=== PATIENT | male | born 1975 | race Caucasian/White ===

== ENCOUNTER 2023-05-03 22:50 | Emergency (ER) | payer BC ==
[2023-05-03] MEDS ORDERED: AMOXIC-POT CLAV 875MG STARTER PACK 2 TAB BTL PO STA (23:04)
[2023-05-03] MEDS ORDERED: ACET/COD 300 MG/30 MG STARTER PACK 6 TAB BTL PO STA (23:04)
--- NOTE | 2023-05-03 23:04 | ED ---
ENT HPI - General Chief complaint: Dental/Oral Stated complaint: oral pain Time Seen by Provider: 05/03/23 22:56 Source: patient Mode of arrival: ambulatory Limitations: no limitations - History of Present Illness Initial comments: 47-year-old male presenting with chief complaint of dental pain. Patient states that he cracked his wisdom tooth on the left lower side a few days ago. He is having increasing pain and starts to feel some swelling. He does have a dentist he is able to follow up with. No difficulty breathing or swallowing. No fevers or chills. - Related Data Previous Rx's Medication Instructions Recorded Amoxic-Pot Clav 875-125Mg 1 tab PO Q12HR 7 Days #14 tab 05/03/23 [Augmentin 875-125] Allergies Allergy/AdvReac Type Severity Reaction Status Date / Time No Known Allergies Allergy Verified 05/03/23 22:51 Review of Systems ROS Statement: Those systems with pertinent positive or pertinent negative responses have been documented in the HPI. ROS Other: All systems not noted in ROS Statement are negative. Past Medical History Past Medical History: No Reported History History of Any Multi-Drug Resistant Organisms: None Reported Past Surgical History: No Surgical Hx Reported Past Psychological History: No Psychological Hx Reported Smoking Status: Former smoker Past Alcohol Use History: None Reported Past Drug Use History: None Reported General Exam Limitations: no limitations General appearance: alert, in no apparent distress Head exam: Present: atraumatic, normocephalic, normal inspection Eye exam: Present: normal appearance, EOMI Expanded Mouth exam: Present: tongue normal. Absent: drooling, trismus, muffled voice Teeth exam: Present: dental caries, fractured tooth #, dental tenderness # Throat exam: normal inspection Neck exam: Present: normal inspection, full ROM Respiratory exam: Absent: respiratory distress Neurological exam: Present: alert, oriented X3 Psychiatric exam: Present: normal affect, normal mood Skin exam: Present: warm, dry, intact, normal color. Absent: rash Course Vital Signs 05/03/23 05/04/23 22:51 00:13 Temperature 98.2 F 98.0 F Pulse Rate 78 87 Respiratory 18 16 Rate Blood Pressure 161/83 158/89 O2 Sat by Pulse 99 98 Oximetry Medical Decision Making - Medical Decision Making Was pt. sent in by a medical professional or institution (, PA, DESKTOP ANALYST, urgent care, hospital, or detention...) When possible be specific @ -No Did you speak to anyone other than the patient for history (EMS, parent, family, police, friend...)? What history was obtained from this source @ -No Did you review nursing and triage notes (agree or disagree)? Why? @ -I reviewed and agree with nursing and triage notes Were old charts reviewed (outside hosp., previous admission, EMS record, old EKG, old radiological studies, urgent care reports/EKG's, detention records)? Report findings @ -No old charts were reviewed Differential Diagnosis (chest pain, altered mental status, abdominal pain women, abdominal pain men, vaginal bleeding, weakness, fever, dyspnea, syncope, headache, dizziness, GI bleed, back pain, seizure, CVA, palpatations, mental health, musculoskeletal)? @ -Fragile includes dental pain, dental abscess, Fam angina, this is not an all inclusive list EKG interpreted by me (3pts min.). @ -As above X-rays interpreted by me (1pt min.). @ -None done CT interpreted by me (1pt min.). @ -None done U/S interpreted by me (1pt. min.). @ -None done What testing was considered but not performed or refused? (CT, X-rays, U/S, labs)? Why? @ -None What meds were considered but not given or refused? Why? @ -None Did you discuss the management of the patient with other professionals (professionals i.e. , PA, DESKTOP ANALYST, lab, RT, psych nurse, social service manager, search strategist, teacher, founder and chief executive officer, caseworker)? Give summary @ -No Was smoking cessation discussed for >3mins.? @ -No Was critical care preformed (if so, how long)? @ -No Were there social determinants of health that impacted care today? How? (Homelessness, low income, unemployed, alcoholism, drug addiction, transportation, low edu. Level, literacy, decrease access to med. care, detention, rehab)? @ -No Was there de-escalation of care discussed even if they declined (Discuss DNR or withdrawal of care, Hospice)? DNR status @ -No What co-morbidities impacted this encounter? (DM, HTN, Smoking, COPD, CAD, Cancer, CVA, ARF, Chemo, Hep., AIDS, mental health diagnosis, sleep apnea, morbid obesity)? @ -None Was patient admitted / discharged? Hospital course, mention meds given and route, prescriptions, significant lab abnormalities, going to OR and other pertinent info. @ -47-year-old male presenting with chief complaint of dental pain located on the left lower side. There is a fractured tooth appreciated on exam. No brawny induration or midline shift. Patient is having no difficulty breathing or swallowing. He'll be treated with pain medication and Augmentin. Follow-up with dentist. Follow-up with PCP. Report back to ER with any new or worsening symptoms. Discussed return parameters and answered all questions. Patient co nveyed verbal understanding and agreed to the plan. I discussed this case in detail with my attending Dr. Epperson Undiagnosed new problem with uncertain prognosis? @ -No Drug Therapy requiring intensive monitoring for toxicity (Heparin, Nitro, Insulin, Cardizem)? @ -No Were any procedures done? @ -No Diagnosis/symptom? @ -Dental abscess, dental fracture Acute, or Chronic, or Acute on Chronic? @ -Acute Uncomplicated (without systemic symptoms) or Complicated (systemic symptoms)? @ -Uncomplicated Side effects of treatment? @ -No Exacerbation, Progression, or Severe Exacerbation? @ -No Poses a threat to life or bodily function? How? (Chest pain, [place], [place], pneumonia, PE, COPD, DKA, ARF, appy, cholecystitis, CVA, Diverticulitis, Homicidal, Suicidal, threat to staff... and all critical care pts) @ -No Disposition Clinical Impression: Fracture of tooth Disposition: HOME SELF-CARE Condition: Good Instructions (If sedation given, give patient instructions): Dental Abscess (ED), Toothache (ED) Additional Instructions: Please follow up with the [facility] dental clinic. [facility] [place] [address]. Phone number for new patients or [phone] for existing patients. Prescriptions: Amoxic-Pot Clav 875-125Mg [Augmentin 875-125] 1 tab PO Q12HR 7 Days #14 tab Is patient prescribed a controlled substance at d/c from ED?: No Referrals: None,Stated [Primary Care Provider] - 1-2 days Time of Disposition: 23:04
[2023-05-03] MEDS ORDERED: KETOROLAC 15 MG/ML 1 ML VIAL IM STA (23:43)
[2023-05-04 00:31] VITALS: BP 158/89; PULSE 87; RESP 16; TEMP 98
== END 2023-05-04 00:13 | disposition home or self-care (01) ==
LOC: EC 22:50
DX: S02.5XXA Fracture of tooth (traumatic), initial encounter for closed fracture (principal); Z87.891 Personal history of nicotine dependence; X58.XXXA Exposure to other specified factors, initial encounter
CPT/HCPCS: 99283 ×2; 96372 ×2; J1885

== ENCOUNTER 2024-03-24 12:27 | Observation (INO) | payer BC ==
[2024-03-24 13:15] LABS: Basophils % (A) 0 %; Eosinophils # (A) 0.2 k/uL (0-0.7); Eosinophils % (A) 2 %; HCT 45.5 % (39.0-53.0); Lymphocytes # (A) 2.1 k/uL (1.0-4.8); Lymphocytes % (A) 19 %; MCH 30.9 pg (25.0-35.0); MCV 93.7 fL (80.0-100.0); Mean Platelet Volume 8.3; Monocytes # (A) 0.7 k/uL (0-1.0); Monocytes % (A) 7 %; Neutrophils # (A) 7.8 k/uL (1.3-7.7); Neutrophils % (A) 69 %; Platelet Count 188 k/uL (150-450); RBC 4.86 m/uL (4.30-5.90); RDW 12.6 % (11.5-15.5); WBC 11.4 k/uL (3.8-10.6)
[2024-03-24 13:34] LABS: ALT 38 U/L (4-49); AST 32 U/L (17-59); African American GFR (CKD) 77 (>60 ml/min/1.73 sqM); Albumin 4.1 g/dL (3.5-5.0); Alkaline Phosphatase 28 U/L (38-126); Anion Gap 9 mmol/L; Blood Urea Nitrogen 16 mg/dL (9-20); Calcium 9.2 mg/dL (8.4-10.2); Carbon Dioxide 24 mmol/L (22-30); Chloride 105 mmol/L (98-107); Glucose 111 mg/dL (74-99); Non-African American GFR(CKD) 67 (>60 ml/min/1.73 sqM); Potassium 4.2 mmol/L (3.5-5.1); Sodium 138 mmol/L (137-145); Total Bilirubin 0.8 mg/dL (0.2-1.3); Total Protein 6.7 g/dL (6.3-8.2)
--- NOTE | 2024-03-24 13:46 | US ---
EXAMINATION TYPE: US venous doppler duplex LE LT DATE OF EXAM: 03/24/2024 12:54 PM COMPARISON: NONE CLINICAL INDICATION: Male, 48 years old with history of pain; pain and redness on anterior left knee. Pt is on antibiotics for it. No hx of DVT, not on blood thinners SIDE PERFORMED: Left TECHNIQUE: The lower extremity deep venous system is examined utilizing real time linear array sonog олег with graded compression, doppler sonography and color-flow sonography. VESSELS IMAGED: Common Femoral Vein Deep Femoral Vein Greater Saphenous Vein * Femoral Vein Popliteal Vein Small Saphenous Vein * Proximal Calf Veins (* superficial vessels) Left Leg: No evidence for DVT. Complex area seen on anterior knee measuring 4.0 x 2.7 x 1.7cm IMPRESSION: Grayscale, color doppler, spectral doppler imaging performed of the deep veins of the lo wer extremities. There is normal flow, compressibility, vascular waveforms.
--- NOTE | 2024-03-24 13:48 | ED ---
Extremity Problem HPI - General Chief complaint: Extremity Problem,Nontraumatic Stated complaint: L Knee Injury Time Seen by Provider: 03/24/24 12:32 Source: patient, RN notes reviewed Mode of arrival: ambulatory Limitations: no limitations - History of Present Illness Initial comments: 48-year-old male presents emergency department complaint of left leg swelling, redness and infection. Patient states that he was doing some donato over the last weekend in which she states he had a small bump on his knee that ripped off. He states shortly after he developed some redness and drainage. He states he was placed on antibiotics secondary to fever and his infection yesterday by urgent care he took his medication yesterday and today then developed increasing redness and swelling of his left leg. He denies any chest pain shortness of breath continues to have fever. - Related Data Home Medications Medication Instructions Recorded Confirmed Sulfamethox-Tmp 800-160Mg [Bactrim 1 tab PO Q12HR 03/24/24 03/24/24 DS 800-160 mg] Allergies Allergy/AdvReac Type Severity Reaction Status Date / Time No Known Allergies Allergy Verified 03/24/24 15:09 Review of Systems ROS Statement: Those systems with pertinent positive or pertinent negative responses have been documented in the HPI. ROS Other: All systems not noted in ROS Statement are negative. Past Medical History Past Medical History: No Reported History History of Any Multi-Drug Resistant Organisms: None Reported Past Surgical History: No Surgical Hx Reported Past Psychological History: No Psychological Hx Reported Smoking Status: Former smoker Past Alcohol Use History: None Reported Past Drug Use History: None Reported General Exam Limitations: no limitations General appearance: alert, in no apparent distress Head exam: Present: atraumatic, normocephalic, normal inspection Eye exam: Present: normal appearance, PERRL, EOMI. Absent: scleral icterus, conjunctival injection, periorbital swelling Cardiovascular Exam: Present: normal rhythm, tachycardia, normal heart sounds. Absent: systolic murmur, diastolic murmur, rubs, gallop, clicks Extremities exam: Present: other (Left knee prepatellar region there is swelling, there is mild erythema with small scab noted there is diffuse swelling of the left lower extremity with mild tenderness and erythema) Neurological exam: Present: alert Course Vital Signs 03/24/24 03/24/24 12:29 14:46 Temperature 98.6 F 98.7 F Pulse Rate 111 H 100 Respiratory 20 16 Rate Blood Pressure 131/80 128/81 O2 Sat by Pulse 98 97 Oximetry Medical Decision Making - Medical Decision Making Was pt. sent in by a medical professional or institution (DESHAUN Shaw, TOOLROOM ATTENDANT, urgent care, hospital, or chcf...) When possible be specific @ -No Did you speak to anyone other than the patient for history (EMS, parent, family, police, friend...)? What history was obtained from this source @ -No Did you review nursing and triage notes (agree or disagree)? Why? @ -I reviewed and agree with nursing and triage notes Were old charts reviewed (outside hosp., previous admission, EMS record, old EKG, old radiological studies, urgent care reports/EKG's, chcf records)? Report findings @ -No old charts were reviewed Differential Diagnosis (chest pain, altered mental status, abdominal pain women, abdominal pain men, vaginal bleeding, weakness, fever, dyspnea, syncope, headache, dizziness, GI bleed, back pain, seizure, CVA, palpatations, mental health, musculoskeletal)? @ -Septic bursitis, cellulitis, DVT, abscess EKG interpreted by me (3pts min.). @ -None X-rays interpreted by me (1pt min.). @ -None done CT interpreted by me (1pt min.). @ -None done U/S interpreted by me (1pt. min.). @ -General Negative for acute DVT of the left lower extremity though there is a fluid collection 4 cm What testing was considered but not performed or refused? (CT, X-rays, U/S, labs)? Why? @ -None What meds were considered but not given or refused? Why? @ -None Did you discuss the management of the patient with other professionals (professionals i.e. DESHAUN Shaw, TOOLROOM ATTENDANT, lab, RT, psych nurse, social security benefits interviewer, link and link knitting machine operator, teacher, sea air land officer, shoe parts caser)? Give summary @ -Dr. Cifuentes for admission with consult orthopedics Was smoking cessation discussed for >3mins.? @ -No Was critical care preformed (if so, how long)? @ -No Were there social determinants of health that impacted care today? How? (Homelessness, low income, unemployed, alcoholism, drug addiction, transportation, low edu. Level, literacy, decrease access to med. care, assisted, rehab)? @ -No Was there de-escalation of care discussed even if they declined (Discuss DNR or withdrawal of care, Hospice)? DNR status @ -No What co-morbidities impacted this encounter? (DM, HTN, Smoking, COPD, CAD, Cancer, CVA, ARF, Chemo, Hep., AIDS, mental health diagnosis, sleep apnea, morbid obesity)? @ -None Was patient admitted / discharged? Hospital course, mention meds given and route, prescriptions, significant lab abnormalities, going to OR and other pertinent info. @ -Admitted patient has septic prepatellar bursitis was started on vancomycin with consult orthopedics ultrasound was negative for DVT. Undiagnosed new problem with uncertain prognosis? @ -No Drug Therapy requiring intensive monitoring for toxicity (Heparin, Nitro, Insulin, Cardizem)? @ -No Were any procedures done? @ -No Diagnosis/symptom? @ -Septic prepatellar bursitis Acute, or Chronic, or Acute on Chronic? @ -Acute Uncomplicated (without systemic symptoms) or Complicated (systemic symptoms)? @ -Complicated Side effects of treatment? @ -No Exacerbation, Progression, or Severe Exacerbation? @ -No Poses a threat to life or bodily function? How? (Chest pain, [place], [place], pneumonia, PE, COPD, DKA, ARF, appy, cholecystitis, CVA, Diverticulitis, Homicidal, Suicidal, threat to staff... and all critical care pts) @ -No - Lab Data Result diagrams: 03/24/24 12:56 03/24/24 12:56 Lab Results 03/24/24 03/24/24 03/24/24 Range/Units 12:56 12:56 12:56 WBC 11.4 H (3.8-10.6) k/uL RBC 4.86 (4.30-5.90) m/uL Hgb 15.0 (13.0-17.5) gm/dL Hct 45.5 (39.0-53.0) % MCV 93.7 (80.0-100.0) fL MCH 30.9 (25.0-35.0) pg MCHC 33.0 (31.0-37.0) g/dL RDW 12.6 (11.5-15.5) % Plt Count 188 (150-450) k/uL MPV 8.3 Neutrophils % 69 % Lymphocytes % 19 % Monocytes % 7 % Eosinophils % 2 % Basophils % 0 % Neutrophils # 7.8 H (1.3-7.7) k/uL Lymphocytes # 2.1 (1.0-4.8) k/uL Monocytes # 0.7 (0-1.0) k/uL Eosinophils # 0.2 (0-0.7) k/uL Basophils # 0.0 (0-0.2) k/uL Sodium 138 (137-145) mmol/L Potassium 4.2 (3.5-5.1) mmol/L Chloride 105 (98-107) mmol/L Carbon Dioxide 24 (22-30) mmol/L Anion Gap 9 mmol/L BUN 16 (9-20) mg/dL Creatinine 1.28 H (0.66-1.25) mg/dL Est GFR (CKD-EPI)AfAm 77 (>60 ml/min/1.73 sqM) Est GFR (CKD-EPI)NonAf 67 (>60 ml/min/1.73 sqM) Glucose 111 H (74-99) mg/dL Plasma Lactic Acid Justice 1.0 (0.7-2.0) mmol/L Calcium 9.2 (8.4-10.2) mg/dL Total Bilirubin 0.8 (0.2-1.3) mg/dL AST 32 (17-59) U/L ALT 38 (4-49) U/L Alkaline Phosphatase 28 L (38-126) U/L Total Protein 6.7 (6.3-8.2) g/dL Albumin 4.1 (3.5-5.0) g/dL Disposition Clinical Impression: Septic prepatellar bursitis of left knee, Left leg cellulitis Disposition: ADMITTED IP TO THIS HOSP Condition: Fair Referrals: Jaiden Cifuentes DO [Primary Care Provider] - 1-2 days Time of Disposition: 14:38
[2024-03-24] MEDS ORDERED: VANCOMYCIN IV PER PHARMACY 1 EACH MISC MISCELLANE PRN (14:36)
[2024-03-24] MEDS ORDERED: HYDROmorphone 0.5 MG/0.5 ML SYRINGE IVP PRN (14:38)
[2024-03-24] MEDS ORDERED: NALOXONE 0.4 MG/ML 1 ML VIAL IV PRN (14:38)
[2024-03-24] MEDS ORDERED: HYDROcodone/APAP 5-325MG 1 EACH TAB PO PRN (14:38)
[2024-03-24] MEDS ORDERED: ONDANSETRON 4 MG/2 ML VIAL IVP PRN (14:38)
[2024-03-24] MEDS: VANCOMYCIN 2,000 MG in SODIUM CHLORIDE 0.9% 500 ML 500 ML IVPB STA (15:25)
--- NOTE | 2024-03-24 18:58 | P.CNOR ---
History of Present Illness - HPI Consult date: 03/24/24 History of present illness: This is a 48-year-old male who is admitted for bursitis of the left knee. Patient states that he removed a piece of skin or callus from the front of his left knee over the weekend and by Thursday the left knee became very swollen and sore. Patient states that he developed a fever of 101 and was treated with oral antibiotics from an urgent care on 03/23/2024. Patient states that he went to work today and the entire left lower leg became swollen, red and more painful. Patient states that he has been taking antibiotics as prescribed and he denies any drainage from his left knee. Patient states that he is able to ambulate, but certain movements are sore. Patient denies any significant past medical history other than [place] as a child which he states left a chronic bump on the left knee in the area of current swelling. Patient states that swelling in this area is a little bit more than normal. Patient denies any chest pain, shortness breath, abdominal pain, numbness, weakness or tingling. Review of Systems See HPI. Past Medical History Past Medical History: No Reported History History of Any Multi-Drug Resistant Organisms: None Reported Past Surgical History: No Surgical Hx Reported Past Psychological History: No Psychological Hx Reported Smoking Status: Former smoker Past Alcohol Use History: None Reported Past Drug Use History: None Reported - Past Family History Father Family Medical History: Diabetes Mellitus Mother Family Medical History: Diabetes Mellitus Medications and Allergies Home Medications Medication Instructions Recorded Confirmed Type Sulfamethox-Tmp 800-160Mg [Bactrim 1 tab PO Q12HR 03/24/24 03/24/24 History DS 800-160 mg] Allergies Allergy/AdvReac Type Severity Reaction Status Date / Time No Known Allergies Allergy Verified 03/24/24 15:09 Physical Examination On exam patient is resting comfortably in bed in no acute distress. Patient is alert and oriented 3. Left lower extremity: On exam there is an approximately 4 cm area of swelling over the anterior aspect of the left knee. There is a small wound in the center of the swelling. There is no active drainage. There is mild erythema. The left lower leg is mildly swollen with faint erythema. Calf is soft and nontender to palpation. Patient has full range of motion of the left foot and ankle. Patient has full range of motion of the left knee with some discomfort at full flexion. Sensation intact. Neurovascular status and circulatory status are intact. Results - Labs Labs: Abnormal Lab Results - Last 24 Hours (Table) 03/24/24 03/24/24 Range/Units 12:56 12:56 WBC 11.4 H (3.8-10.6) k/uL Neutrophils # 7.8 H (1.3-7.7) k/uL Creatinine 1.28 H (0.66-1.25) mg/dL Glucose 111 H (74-99) mg/dL Alkaline Phosphatase 28 L (38-126) U/L H & H 03/24/24 Range/Units 12:56 Hgb 15.0 (13.0-17.5) gm/dL Hct 45.5 (39.0-53.0) % Result Diagrams: 03/24/24 12:56 03/24/24 12:56 Assessment and Plan (1) Left leg cellulitis Current Visit: Yes Status: Acute Code(s): L03.116 - CELLULITIS OF LEFT LOWER LIMB SNOMED Code(s): 87563326935949929 (2) Septic prepatellar bursitis of left knee Current Visit: Yes Status: Acute Code(s): M71.162 - OTHER INFECTIVE BURSITIS, LEFT KNEE SNOMED Code(s): 2042220213996777 Plan: 1. Recommend continuation of IV antibiotics. 2. K-pad to the left knee as tolerated. 3. Patient is well-appearing and afebrile. White blood cell count is 11.4 today. 4. No surgical intervention planned. Further recommendations pending clinical course. An x-ray of the left knee is ordered today.
[2024-03-24] MEDS: ACETAMINOPHEN TAB 325 MG TAB PO PRN (19:58)
[2024-03-25 05:15] LABS: African American GFR (CKD) >90 (>60 ml/min/1.73 sqM); Non-African American GFR(CKD) 81 (>60 ml/min/1.73 sqM)
[2024-03-25] MEDS: VANCOMYCIN 1,750 MG in SODIUM CHLORIDE 0.9% 500 ML 500 ML IVPB SCH (05:32)
--- NOTE | 2024-03-25 09:11 | P.PN ---
Subjective Progress Note Date: 03/25/24 Principal diagnosis: Prepatellar bursitis left knee. This is a 48-year-old male who is admitted for bursitis of the left knee. Patient states that he removed a piece of skin or callus from the front of his left knee over the weekend and by Thursday the left knee became very swollen and sore. Patient states that he developed a fever of 101 and was treated with oral antibiotics from an urgent care on 03/23/2024. Patient states that he went to work today and the entire left lower leg became swollen, red and more painful. Patient states that he has been taking antibiotics as prescribed and he denies any drainage from his left knee. Patient states that he is able to ambulate, but certain movements are sore. Patient denies any significant past medical history other than [place]Schlatter as a child which he states left a chronic bump on the left knee in the area of current swelling. Patient states that swelling in this area is a little bit more than normal. Patient denies any chest pain, shortness breath, abdominal pain, numbness, weakness or tingling. 03/25/2024: The patient has no new complaints or concerns today. He states that his knee is feeling much better. He reports no fever or chills. Objective - Vital Signs Vital signs: Vital Signs Temp 98.2 F 03/25/24 07:13 Pulse 78 03/25/24 07:13 Resp 17 03/25/24 07:13 BP 121/75 03/25/24 07:13 Pulse Ox 97 03/25/24 07:13 FiO2 Intake & Output 03/24/24 03/25/24 03/25/24 18:59 06:59 18:59 Weight 107.501 kg Other: # Voids 1 - Exam This is a pleasant 48-year-old male in no acute distress. He is alert and oriented x 3. His is present at bedside. Exam of the left knee reveals that his erythema and swelling are significantly improved. He continues to have a small amount of erythema just over the bursal area. He has improved range of motion of the knee. He has full foot and ankle motion without difficulty or pain. Neurovascular status to the lower extremity is intact. - Labs CBC & Chem 7: 03/24/24 12:56 03/25/24 04:31 Labs: Abnormal Lab Results - Last 24 Hours (Table) 03/24/24 03/24/24 Range/Units 12:56 12:56 WBC 11.4 H (3.8-10.6) k/uL Neutrophils # 7.8 H (1.3-7.7) k/uL Creatinine 1.28 H (0.66-1.25) mg/dL Glucose 111 H (74-99) mg/dL Alkaline Phosphatase 28 L (38-126) U/L Assessment and Plan (1) Left leg cellulitis Current Visit: Yes Status: Acute Code(s): L03.116 - CELLULITIS OF LEFT LOWER LIMB SNOMED Code(s): 85804440516186777 (2) Septic prepatellar bursitis of left knee Current Visit: Yes Status: Acute Code(s): M71.162 - OTHER INFECTIVE BURSITIS, LEFT KNEE SNOMED Code(s): 1825516760336850 Plan: The clinical findings are discussed with the patient and his . He has had significant improvement in the swelling and redness. I recommend continuing the antibiotics and we will place him in a knee immobilizer. He is instructed to avoid bending the knee. He may be discharged to home tomorrow if he continues to improve I recommend home on oral antibiotics per internal medicine. We discussed that we would like to avoid incising the area if at all possible to prevent long-term drainage from the area. The patient understands and agrees with the plan.
--- NOTE | 2024-03-25 09:41 | XR ---
EXAMINATION TYPE: XR knee complete LT DATE OF EXAM: 03/24/2024 COMPARISON: None HISTORY: 48-year-old male inferior to patella, left knee bursitis and pain TECHNIQUE: AP, oblique, and lateral views FINDINGS: There is corticated ossific density at the tibial tuberosity suggesting sequela of prior Stark-Schla tter's disease. There is focal soft tissue tumor in anterior to the tibial tuberosity measuring 5.6 x 2.4 cm. There is a trace to small knee joint effusion. No acute fracture, subluxation, or dislocation is seen . IMPRESSION: 1. Focal protuberance overlying the tibial tuberosity measuring 5.6 x 2.4 cm. Consider clergyman's kn ee/superficial infrapatellar bursitis in the differential. 2. Sequela of prior Stark-Schlatter's disease. 3. Trace to small knee joint effusion.
--- NOTE | 2024-03-25 11:27 | P.HPIM ---
History of Present Illness H&P Date: 03/25/24 Chief Complaint: Left knee bursitis This is a 48-year-old gentleman who was working on donato over the weekend, developed a small left knee bump that eventually ripped off with further development of fevers, redness and drainage. Proceeded to urgent care and placed on antibiotics. Redness and swelling of the affected extremity progressed and patient proceeded to the ER. Denies chest pain, palpitations or shortness of breath. Afebrile, WBC 11.4, lactic acid 1.0, hematology unremarkable, electrolytes within normal limits, creatinine mildly elevated on admission at 1.2 weight currently back to baseline 1.09. Venous Doppler reported no evidence for DVT, complex area seen on anterior knee measuring 4 x 2.7 x 1.7. Knee x-ray pending. Review of Systems ROS Statement: Those systems with pertinent positive or pertinent negative responses have been documented in the HPI. ROS Other: All systems not noted in ROS Statement are negative. Past Medical History Past Medical History: No Reported History History of Any Multi-Drug Resistant Organisms: None Reported Past Surgical History: No Surgical Hx Reported Past Psychological History: No Psychological Hx Reported Smoking Status: Former smoker Past Alcohol Use History: None Reported Past Drug Use History: None Reported - Past Family History Father Family Medical History: Diabetes Mellitus Mother Family Medical History: Diabetes Mellitus Medications and Allergies Home Medications Medication Instructions Recorded Confirmed Type Sulfamethox-Tmp 800-160Mg [Bactrim 1 tab PO Q12HR 03/24/24 03/24/24 History DS 800-160 mg] Allergies Allergy/AdvReac Type Severity Reaction Status Date / Time No Known Allergies Allergy Verified 03/24/24 15:09 Physical Exam Vitals: Vital Signs Temp Pulse Pulse Resp BP BP Pulse Ox 03/25/24 07:13 98.2 F 78 17 121/75 97 03/25/24 02:10 98.1 F 83 16 111/71 93 L 03/24/24 19:43 99.2 F 94 17 131/75 96 03/24/24 18:15 98.3 F 98 16 126/79 97 03/24/24 14:46 98.7 F 100 16 128/81 97 03/24/24 12:29 98.6 F 111 H 20 131/80 98 Intake and Output 03/24/24 03/25/24 03/25/24 22:59 06:59 14:59 Other: # Voids 1 Weight 107.501 kg PHYSICAL EXAM: VITAL SIGNS: [Reviewed] GENERAL: Obese gentleman, alert and oriented x 3, sitting up in bed, no acute distress HEENT: Normocephalic, atraumatic ,conjunctivae normal. eyes normal. MMM. NECK: Supple, no JVD. No thyroid enlargement. No LNs CARDIOVASCULAR: S1, S2 regular. No murmur RESPIRATION: Breath sounds diminished in the bases. No rhonchi or crackles. No bronchial breathing. ABDOMEN: Soft, nondistended, nontender . No guarding. no masses palpable. No ascites, No hepatosplenomegaly.Bowel sounds heard. LEGS: Left knee arrhythmia and swelling, knee mobile. NERVOUS SYSTEM: Cranial N 2-12 grossly normal. No focal deficits. Strength and sensation grossly intact. Skin: Warm and dry Results CBC & Chem 7: 03/24/24 12:56 03/25/24 04:31 Labs: Abnormal Lab Results - Last 24 Hours (Table) 03/24/24 03/24/24 Range/Units 12:56 12:56 WBC 11.4 H (3.8-10.6) k/uL Neutrophils # 7.8 H (1.3-7.7) k/uL Creatinine 1.28 H (0.66-1.25) mg/dL Glucose 111 H (74-99) mg/dL Alkaline Phosphatase 28 L (38-126) U/L Thrombosis Risk Factor Assmnt - Choose All That Apply Each Factor Represents 1 point: Age 41-60 years, Obesity (BMI >25), Swollen legs (current) Thrombosis Risk Factor Assessment Total Risk Factor Score: 3 Thrombosis Risk Factor Assessment Level: Moderate Risk Assessment and Plan Assessment: Septic prepatellar bursitis of left knee, left leg cellulitis Leukocytosis secondary to the above Acute renal insufficiency secondary to the above, returned to baseline Obesity, BMI 32 Plan: Continue on current medication regimen ,monitoring and symptomatic treatment. Maintain antibiotics. Close monitoring of renal function. knee immobilizer ordered. orthopedic surgery following. The impression and plan of care has been dictated as directed. : I performed a history and examination of this patient, discussed the same with the dictator. I agree with the dictator's note ,documented as a scribe. Any additional findings or plans will be noted.
[2024-03-26 01:42] VITALS: RESP 16
[2024-03-26 09:02] VITALS: TEMP 98.1
[2024-03-26 09:44] LABS: Basophils # (A) 0.06 X 10*3/uL (0.00-0.10); Basophils % (A) 0.8 %; Eosinophils # (A) 0.43 X 10*3/uL (0.04-0.35); Eosinophils % (A) 5.7 %; HCT 45.1 % (39.6-50.0); HGB 15.1 g/dL (13.0-17.0); Lymphocytes % (A) 28.9 %; MCH 31.1 pg (27.0-32.0); MCHC 33.5 g/dL (32.0-37.0); Mean Platelet Volume 10.3 FL (9.5-12.2); Monocytes # (A) 0.81 X 10*3/uL (0.20-1.00); Monocytes % (A) 10.6 %; NRBC Per 100 WBC 0 X 10*3/uL (0.00-0.01); Neutrophils # (A) 4.08 X 10*3/uL (1.80-7.70); Neutrophils % (A) 53.6 %; Platelet Count 197 X 10*3/uL (140-440); RBC 4.85 X 10*6/uL (4.40-5.60); RDW 12.6 % (11.5-14.5); WBC 7.61 X 10*3/uL (4.50-10.00)
--- NOTE | 2024-03-26 10:30 | P.PN ---
Subjective Progress Note Date: 03/26/24 This is a 48-year-old male who is admitted for septic bursitis of the left knee. Patient is seen and evaluated at bedside today and reports continued improvement in pain and swelling. Patient denies any new symptoms or complaints today. Objective - Vital Signs Vital signs: Vital Signs Temp 98.1 F 03/26/24 07:10 Pulse 72 03/26/24 07:10 Resp 16 03/26/24 07:10 BP 124/75 03/26/24 07:10 Pulse Ox 95 03/26/24 07:10 FiO2 Intake & Output 03/25/24 03/26/24 03/26/24 18:59 06:59 18:59 Other: Voiding Method Toilet # Voids 3 1 # Bowel Movements 2 - Exam This is a pleasant 48-year-old male in no acute distress. Patient is alert and oriented x 3 and is present at bedside. Exam of the left knee reveals that his erythema and swelling are significantly improved. There is a small amount of swelling and minimal erythema over the bursal area. There is no drainage. Patient has full range of motion of the left foot and ankle. Calf is soft and nontender to palpation. Sensation intact. Neurovascular status to the lower extremity is intact. - Labs CBC & Chem 7: 03/26/24 06:07 03/25/24 04:31 Labs: Abnormal Lab Results - Last 24 Hours (Table) 03/26/24 Range/Units 06:07 Eosinophils # 0.43 H (0.04-0.35) X 10*3/uL Microbiology - Last 24 Hours (Table) 03/24/24 12:56 Blood Culture - Preliminary Blood Assessment and Plan (1) Left leg cellulitis Current Visit: Yes Status: Acute Code(s): L03.116 - CELLULITIS OF LEFT LOWER LIMB SNOMED Code(s): 44037566946196014 (2) Septic prepatellar bursitis of left knee Current Visit: Yes Status: Acute Code(s): M71.162 - OTHER INFECTIVE BURSITIS, LEFT KNEE SNOMED Code(s): 0896198625165023 Plan: Patient's symptoms continue to improve. Patient is afebrile and white blood cell count is within normal limits. Recommend use of a knee immobilizer and discharge on oral antibiotics per internal medicine. Recommend outpatient follow-up in the office next week.
[2024-03-26 10:34] LABS: Blood Urea Nitrogen 13.5 mg/dL (9.0-27.0); Chloride 108 mmol/L (96-109); Glucose 102 mg/dL (70-110); Potassium 4.7 mmol/L (3.5-5.5); Sodium 141 mmol/L (135-145)
[2024-03-26 10:35] LABS: Calcium 8.5 mg/dL (8.7-10.3); Carbon Dioxide 23.6 mmol/L (21.6-31.8)
--- NOTE | 2024-03-26 14:18 | P.DS ---
Providers Date of admission: 03/24/24 14:31 Expected date of discharge: 03/26/24 Attending physician: Jaiden Cifuentes Consults: 03/24/24 14:38 Consult Physician Urgent Consulting Provider: Gabriel Boyle Consult Reason/Comments: Prepatellar septic bursitis Do you want consulting provider notified?: Yes Primary care physician: Jaiden Cifuentes Hospital Course: Discharge diagnoses: Left knee prepatellar bursitis, left leg cellulitis: Leukocytosis KAYLA: Resolved Obesity BMI 32 Presented with left knee pain. Evaluated by orthopedic for septic bursitis of left knee prepatellar annual left leg cellulitis. Symptoms improved significantly during hospitalization, received IV vancomycin. Orthopedic recommended outpatient follow-up Continued on doxycycline and Keflex for 14 days, failed Bactrim. Blood cultures negative so far. Hospital course: This is a 48-year-old gentleman who was working on donato over the weekend, developed a small left knee bump that eventually ripped off with further development of fevers, redness and drainage. Proceeded to urgent care and placed on antibiotics. Redness and swelling of the affected extremity progressed and patient proceeded to the ER. Denies chest pain, palpitations or shortness of breath. Afebrile, WBC 11.4, lactic acid 1.0, hematology unremarkable, electrolytes within normal limits, creatinine mildly elevated on admission at 1.2 weight currently back to baseline 1.09. Venous Doppler reported no evidence for DVT, complex area seen on anterior knee measuring 4 x 2.7 x 1.7. Knee x-ray --focal protuberance overlying the tibial tuberosity measuring 5.6X 2.4 cm. Trace to small knee joint effusion. Patient was admitted to hospital for further evaluation and management. Patient symptoms gradually improved during hospitalization. Patient received vancomycin during hospitalization. Orthopedic consulted, recommended to continue oral antibiotics at discharge and outpatient follow-up next week. Patient continued on doxycycline and Keflex for 14 days at discharge, advised to follow-up with orthopedic as outpatient. Advised to continue wearing knee brace. PHYSICAL EXAMINATION: GENERAL: The patient is A&O x3, NAD HEENT: EOMI, Sclerae anicteric, Moist Mucous membranes Neck: Supple, Non tender, No JVD PULMONARY: Equal breath souds B/L, No wheezing, No crackles. CARDIOVASCULAR: S1, S2 present. No murmurs, rubs, or gallops. ABDOMEN: Soft, nontender, nondistended, normoactive bowel sounds. No guarding or rebound tenderness. MUSCULOSKELETAL: No edema, No cyanosis. No clubbing. Normal ROM. Intact peripheral pulses. Left knee mild swelling, no warmth tenderness. EXTREMITIES: No cyanosis, clubbing, or pedal edema. NEUROLOGICAL: CN 2-12 grossly intact. No FND SKIN: No rashes. Dictation was produced using [employer] dictation software. please excuse any grammatical, word or spelling errors. Patient Condition at Discharge: Fair Plan - Discharge Summary New Discharge Prescriptions: New Cephalexin [Keflex] 1,000 mg PO Q8HR 14 Days #84 cap Doxycycline [Vibramycin] 100 mg PO BID 14 Days #28 capsule Acetaminophen Tab [Tylenol] 650 mg PO Q6HR PRN tab PRN Reason: Mild Pain Or Fever > 100.5 Discontinued Sulfamethox-Tmp 800-160Mg [Bactrim DS 800-160 mg] 1 tab PO Q12HR Discharge Medication List Acetaminophen Tab [Tylenol] 650 mg PO Q6HR PRN tab 03/26/24 [Rx] Cephalexin [Keflex] 1,000 mg PO Q8HR 14 Days #84 cap 03/26/24 [Rx] Doxycycline [Vibramycin] 100 mg PO BID 14 Days #28 capsule 03/26/24 [Rx] Follow up Appointment(s)/Referral(s): Jaiden Cifuentes DO [Primary Care Provider] - 1-2 days Gabriel Boyle DO [Doctor of Osteopathic Medicine] - 3 Days Activity/Diet/Wound Care/Special Instructions: Maintain knee immobilizer when out of bed. Rest and elevate for swelling. Please follow-up with [facility] and call with any questions or concerns, .
[2024-03-26 15:13] VITALS: BP 145/73; PULSE 71
[2024-03-26] MEDS ORDERED: VANCOMYCIN TROUGH DUE 1 EACH MISC MISCELLANE ONE (16:00)
== END 2024-03-26 15:49 | disposition home or self-care (01) ==
LOC: EC 12:27 → 4SSUR 14:31 → INTOOBSV 14:31 → 4SSUR 17:45 → UNDODISIN 03-26 15:49
PROVIDERS: ADMIT Family Medicine; ATTEND Family Medicine
DX: M70.42 Prepatellar bursitis, left knee (principal); L03.116 Cellulitis of left lower limb; N17.9 Acute kidney failure, unspecified; E66.9 Obesity, unspecified; Z68.32 Body mass index [BMI] 32.0-32.9, adult; Z87.891 Personal history of nicotine dependence
CPT/HCPCS: 96366 ×3; 96365; 96367; 99285; 36415; 80053; 80048; 82565; 83605; 85025 ×2; 87040; 73562; 93971; G0378 ×3; L1830; J3370 ×3; J0690; 96368

== ENCOUNTER → 2024-05-02 | Day surgery (SDC) | payer BC ==
[2024-04-27 13:01] VITALS: BMI 31.1
[~2024-05-02] MED LIST: LIDOCAINE 1% (10MG/ML) FOR IV START INTRADERMA PRN; PROPOFOL 10 MG/ML 20 ML VIAL IV ONE
[2024-05-02] MEDS: LACTATED RINGERS 1,000 ML IV SCH (11:52)
[2024-05-02] MEDS: IV FLUID CONTINUATION 1,000 ML IV ONE (11:54)
[2024-05-02 11:56] VITALS: TEMP 97.7
--- NOTE | 2024-05-02 12:30 | P.PCN ---
Date of Procedure: 05/02/24 Preoperative Diagnosis: Screening Postoperative Diagnosis: Normal colon Procedure(s) Performed: Colonoscopy Anesthesia: MAC Surgeon: Davie Fisher Pathology: none sent Condition: stable Disposition: same day Indications for Procedure: 48-year-old male presents today for screening colonoscopy. He has never had colonoscopy previously. Denies blood in stool. Denies family history of colon cancer. Risks, benefits and alternatives were provided to the patient. All questions answered. Operative Findings: Overall normal-appearing colon Description of Procedure: The patient was brought to the endoscopy suite. He was then placed in left lateral decubitus position and adequate sedation achieved using conscious sedation. A digital rectal exam was performed and mild internal hemorrhoids were palpated. An endoscope was then placed in the rectum and advanced to the cecum as identified by landmarks including the appendiceal orifice and the ileocecal valve. The prep was good. The colonoscope was then slowly withdrawn, examining for any mucosal abnormalities. The cecum, ascending, transverse, descending and sigmoid colon were visualized adequately. No polyps were noted. No evidence of diverticulosis. No inflammatory lesions.. Retroflexion was performed in the rectum and mild internal hemorrhoids were visible. Excess air was removed. The colonoscope withdrawn and the procedure terminated. The patient was then transferred to the recovery unit in stable condition. Repeat colonoscopy should be performed in 10 years.
[2024-05-02 12:38] VITALS: RESP 14
[2024-05-02 13:01] VITALS: BP 114/76; PULSE 75
== END | disposition home or self-care (01) ==
LOC: ORWHC2ENDO 10:36
PROVIDERS: ATTEND Surgery
DX: Z12.11 Encounter for screening for malignant neoplasm of colon (principal); K64.8 Other hemorrhoids; G47.33 Obstructive sleep apnea (adult) (pediatric); Z87.891 Personal history of nicotine dependence
CPT/HCPCS: 45378; J2704

== ENCOUNTER → 2024-05-04 | Outpatient (CLI) | payer BC ==
[2024-05-04 13:56] VITALS: BP 139/91; PULSE 69; RESP 16; TEMP 98.2
--- NOTE | 2024-05-04 14:22 | P.SLEEP ---
History of Present Illness DATE: 05/04/2024 CONSULTATION/NEW PATIENT EVALUATION HISTORY OF PRESENT ILLNESS/SLEEP-WAKE EVALUATION: 48-year-old gentleman had been evaluated in the sleep center for possible obstructive sleep apnea hypopnea syndrome. SLEEP SCHEDULE: Usually sleep schedule from 10 PM to 5:30 AM on weekdays and from 1112 midnight until 78 AM on weekend. FALLING ASLEEP: Usually no problems with falling asleep. DURING SLEEP: According to patient he has severe snoring and witnessed episodes of stop breathing during the sleep. Positive history of movements during the sleep. Positive history of heartburn no history of hypnogogical hallucinations, sleep paralysis, or cataplexy. DURING THE DAY/WAKE STATE: Patient may feel sleepiness during the day. [place] sleepiness scale is 11. Usually patient does not take naps. PAST MEDICAL HISTORY: Mostly negative. PAST SURGICAL HISTORY: None. MEDICATIONS: None. SOCIAL HISTORY: Please see below. FAMILY HISTORY: Diabetes mellitus. REVIEW OF SYSTEMS: Loud snoring, sleepiness during the day. No fevers. No double vision. No recent chest pain. No shortness of breath. No abdominal pain. No bleeding episodes. No blood in urine. No seizure episodes. PHYSICAL EXAMINATION: GENERAL: A pleasant patient without any distress. VITAL SIGNS: Please see below, weight 240.2 pounds, BMI 33.4. HEENT: PERRLA, EOMI. Evaluation of oropharynx showed tongue protrudes midline, low position of soft palate Mallampati 4. NECK: Supple. No JVD. Thyroid is not palpable. 18.5 inches in circumference. LUNGS: Clear to percussion and to auscultation. Good air exchange. No wheezing or rhonchi. HEART: S1, S2 regular. No murmurs, gallops or rubs. ABDOMEN: Soft and nontender. Bowel sounds are present. No organomegaly appreciated. EXTREMITIES: No clubbing or cyanosis. EQUIPMENT MECHANIC: Awake, alert, and oriented x3. Cranial nerves 2 to 7 intact. There is no fasciculation or atrophy noted. No focal deficits observed. ASSESSMENT: 1. Loud snoring, witnessed episodes of stop breathing during the sleep, extremely low position of soft palate Mallampati 4, wide neck 18.5 inches in circumference, sleepiness with [place] Sleepiness Scale increased to 11. Obstructive sleep apnea hypopnea syndrome. 2. Mild obesity, BMI 33.4. 3. Increased blood pressure in the office. 4. Twitching of the legs, possible periodic limb movements. PLAN: 1. Home sleep apnea test for evaluation of patient's breathing during sleep. 2. Following plan after reading sleep study. 3. Preferable position during sleep on the side. 4. No driving if patient feels any sleepiness. Patient is aware of civil and criminal liability for unsafe driving. 5. Sleep hygiene with regular sleep time for at least 7.5-8 hours. 6. Watching and losing weight. Thank you very much for referring this patient for consultation. Sincerely, Francisco Hoffman MD, PhD, FAASM. Diplomat of [place] [employer], Sleep Medicine Board by [place] [employer] [place] [employer] [place] cc: Jaiden Cifuentes DO Past Medical History Past Medical History: No Reported History History of Any Multi-Drug Resistant Organisms: None Reported Past Surgical History: No Surgical Hx Reported Past Psychological History: No Psychological Hx Reported Smoking Status: Former smoker Past Alcohol Use History: None Reported Past Drug Use History: None Reported - Past Family History Father Family Medical History: Diabetes Mellitus Additional Family Medical History / Comment(s): Dad passed due to diabetes. Mother Family Medical History: Diabetes Mellitus Medications and Allergies Home Medications Medication Instructions Recorded Confirmed Type No Known Home Medications 04/27/24 04/27/24 History Allergies Allergy/AdvReac Type Severity Reaction Status Date / Time No Known Allergies Allergy Verified 04/27/24 12:54 Physical Exam Vitals: Vital Signs Temp Pulse Resp BP Pulse Ox 05/04/24 13:54 98.2 F 69 16 139/91 98 Intake and Output 05/03/24 05/04/24 05/04/24 22:59 06:59 14:59 Other: Weight 108.919 kg Sleep Note - Sleep Data ESS Total: 7 - Sleep Note Sleep Note: Temperature: 98.2 F Pulse Rate: 69 Respiratory Rate: 16 Blood Pressure: 139/91 SpO2: 98 Height: 5 ft 11 in Weight: 108.919 kg BMI: Neck Circumference: 18.5
== END ==
LOC: 3 N SLEEP 13:18
PROVIDERS: ATTEND Internal Medicine
CPT/HCPCS: 99211

== ENCOUNTER → 2024-05-11 | Outpatient (CLI) | payer BC ==
--- NOTE | 2024-05-12 17:51 | P.PCN ---
Description of Procedure: CLINICAL: A home sleep apnea test has been done for confirmation of possible obstructive sleep apnea-hypopnea syndrome. DESCRIPTION OF PROCEDURE: RESULTS: Recording time was 6 hours 44 minutes. Evaluation time was 6 hours 32 minutes. Evaluation time is sufficient for making conclusion about results of the test. Raw data of sleep recording has been reviewed and is adequate. Respiratory channel showed 0 apneas and 47 hypopneas. Apnea-hypopnea index was 7.2 per hour. Pulse rate in the range between minimum 58, maximum 162, average 83 by computer calculation. Lowest desaturation was 79%. IMPRESSION: 1. Mild Obstructive Sleep Apnea Hypopnea Syndrome, patient present with symptoms of excessive daytime sleepiness with [place] Sleepiness Scale increased to 11. Please see other impressions from consultation. PLAN: 1. The patient will be started on auto-PAP treatmentfor correction of respiratory abnormallities during sleep. 2. I will see patient for follow up visit to discuss results of the test, evaluate clinical response on treatment with PAP therapy and make any necessary adjustments related to mask fitting, pressure, and humidification. 3. Watching weight. 4. Sleep hygiene with regular time in bed for at least 8 hours. 5. No driving if feeling any sleepiness. Thank you very much for allowing me to participate in the management of your patient. Sincerely, Francisco Hoffman MD, PhD, FAASM Diplomat of [place] [employer] Sleep Medicine Board of [place] [employer] [facility] [place] cc: Jaiden Cifuentes DO
== END ==
LOC: 3 N SLEEP 17:00
PROVIDERS: ATTEND Internal Medicine
DX: G47.33 Obstructive sleep apnea (adult) (pediatric) (principal); G47.10 Hypersomnia, unspecified

== ENCOUNTER → 2024-08-03 | Outpatient (CLI) | payer BC ==
[2024-08-03 16:17] VITALS: BP 156/91; PULSE 76; RESP 18; TEMP 98.5
--- NOTE | 2024-08-03 17:42 | P.PROGSL ---
Subjective DATE: 08/03/2024 FOLLOW UP VISIT. Patient with obstructive sleep apnea hypopnea syndrome return to sleep center for follow-up visit. Recently patient had sleep study which documented obstructive sleep apnea hypopnea syndrome. Patient was initiated on PAP therapy and today is first visit after treatment was started. Patient was able to use PAP equipment every night for the whole night. After starting to use CPAP equipment patient sleeps better and feels better during the day. The patient does not have significant problems with the mask, PAP pressure and humidification. [place] sleepiness scale is 2, which showed significant improvements comparing with [place] Sleepiness Scale during consultation when it was 11. I checked information from PAP unit. PAP unit pressure 5-15, average 9.6 cm H2O. Usage is 100% for more then 4 hours, average 7.8 hours per night. Leak is increased to 35.3 l/m, patient has santos and mustache. Apnea Hypopnea Index is perfect 0.6. MEDICATIONS: None During physical exam: GENERAL: A pleasant patient without any distress. VITAL SIGNS: Please see below, weight 244.0 pounds. HEENT: PERRLA, EOMI.low position of soft palate, Mallapati 4 . NECK: Supple. No JVD. LUNGS: Clear to percussion and to auscultation. Good air exchange. No wheezing or rhonchi. HEART: S1, S2 regular. ABDOMEN: Soft and nontender.[] EXTREMITIES: No clubbing or cyanosis. GAS GENERATOR OPERATOR: Awake, alert, and oriented x3. No focal deficit. Impressions: 1. Obstructive sleep apnea-hypopnea syndrome. Patient demonstrated great compl iance with treatment, benefiting from treatment. 2. Mild obesity, patient increased weight on 4 pounds comparing with previous visit. 3. Increased blood pressure in the office again. 4. History of possible periodic limb movements. Plan: 1. Continue using PAP equipment every night for the whole night. 2. To change air filter at least 1-2 times per month. 3. PAP unit should stay lower then position of the head. 4. Advised patient to remove all remaining water from humidifier canister daily and make it dry after each usage. Refill canister with fresh distilled water before each usage. 5. Sleep hygiene with regular time in bed for at least 8 hours. 6. Precautions related to driving. No driving if feel any sleepiness. 7. I will maintain prescription for PAP supplies including mask, tube, filters. 8. Follow up visit in 8 months or earlier if patient has any problems. 9. Watching and losing weight. Thank you very much for allowing me to participate in the management of your patient. Francisco Hoffman MD, PhD, FAASM. Diplomat of [place] [employer], Sleep Medicine Board by [place] [employer] Information Systems Director [facility] [place] Objective - Vital Signs Vital Signs: Vital Signs Temp 98.5 F 08/03/24 16:15 Pulse 76 08/03/24 16:15 Resp 18 08/03/24 16:15 BP 156/91 08/03/24 16:15 Pulse Ox 96 08/03/24 16:15 FiO2 Intake & Output 08/02/24 08/03/24 08/03/24 18:59 06:59 18:59 Weight 110.677 kg Home Medications: Home Medications Medication Instructions Recorded Confirmed Type No Known Home Medications 04/27/24 04/27/24 History
== END ==
LOC: 3 N SLEEP 15:39
PROVIDERS: ATTEND Internal Medicine
DX: G47.33 Obstructive sleep apnea (adult) (pediatric) (principal); I10 Essential (primary) hypertension
CPT/HCPCS: 99212